=== PATIENT | female | born 1980 | race Caucasian/White ===

== ENCOUNTER 2020-05-17 13:39 | Emergency (ER) | payer BC, SELFPAY ==
[2020-05-17 14:01] VITALS: BP 132/91; PULSE 88; RESP 14; TEMP 36.6; O2SAT 98; BMI 23.5
--- NOTE | 2020-05-17 16:05 | W.ED.SKABFB ---
HPI - Skin/Abscess/Foreign Bdy General: Chief complaint: Skin/Abscess/Foreign Body Stated complaint: sore under right armpit Time Seen by Provider: 05/17/20 14:24 Source: patient Mode of arrival: ambulatory Limitations: no limitations History of Present Illness: HPI narrative: 39-year-old female patient presents to the emergency department with 7-day onset of possible abscess to the right underarm. She reports pain is now present with sleeping and is unable to rest comfortably. She states has history of abscesses in the past. MD complaint: abscess/boil Onset (ago): week(s) (1) Tetanus up to date: yes Location: chest (rt lower axilla - chest wall) Severity scale (1-10): 6 Quality: aching and constant Pain Consistency: constant Relieving factors: none Exacerbating factors: none Context: none Associated symptoms: Reports no associated symptoms; Deny chills, fever(s), nausea or vomiting Treatments prior to arrival: none Review of Systems General: Reports: 10 or more systems reviewed and unremarkable except in HPI and below Const: Denies: fever(s), chills or diaphoresis Eyes: Denies: blurry vision or eye redness ENMT: Denies: throat pain, dental pain or disequilibrium Card: Denies: chest pain, palpitations or irregular heart rhythm Resp: Denies: dyspnea, productive cough, non-productive cough or wheezing GI: Denies: abdominal pain, nausea or vomiting : Denies: difficulty voiding or dysuria Musc: Denies: neck pain, back pain, joint pain, joint swelling, muscle cramps or muscle weakness Skin/Breast: Reports: skin tenderness and changes in skin color; Denies: rash or pruritus Neuro: Denies: headache(s), weakness in extremities or behavioral changes Psych: Denies: anxiety or depression Morgan/Lymph: Denies: easy bruising Physical Exam Const: COMMON NORMALS: no acute distress, patient oriented x3, healthy appearing and alert GENERAL APPEARANCE: cooperative, comfortable and well hydrated HENMT: COMMON NORMALS: normocephalic, Normal external nose present and moist oral mucous membranes HEAD & SCALP: normocephalic NOSE: Normal external nose present Eye: COMMON NORMALS: Equal, round and reactive pupils present and EOMs intact bilaterally GENERAL EYE: appearance normal, both eyes and all related structures PUPIL: Yes Equal, round and reactive pupils present Neck/C-Spine: COMMON NORMALS: full ROM and no lymphadenopathy GENERAL: Yes normal visual inspection and Yes trachea midline CERVICAL SPINE: Yes cervical ROM normal Lymph: LYMPHATIC: no lymphadenopathy noted Chest: COMMONS NORMALS: normal inspection of the chest and normal palpation of entire chest wall Resp: COMMON NORMALS: normal respiratory effort, No retractions, No use of accessory muscles and clear to auscultation bilaterally EFFORT & INSPECTION: Yes able to speak in complete sentences AUSCULTATION: clear to auscultation bilaterally Cardio: COMMON NORMALS: regular rhythm, S1 normal heart sound present and S2 normal heart sound present RHYTHM: regular rhythm HEART SOUNDS: S1 normal heart sound present and S2 normal heart sound present GI: COMMON NORMALS: Soft to palpation and non-tender INSPECTION: Yes normal to inspection PALPATION: Yes Soft to palpation : COMMON NORMALS: Yes no CVA tenderness BLADDER/KIDNEY EXAM: Yes no CVA tenderness Back/Pelvis: COMMON NORMALS: no CVA tenderness and thoracic and lumbar spine normal to inspection Extremity: COMMON NORMALS: normal to inspection and capillary refill normal Neuro: COMMON NORMALS: patient oriented x3 and no focal motor deficits SENSORIUM/ORIENTATION: Yes alert Psych: COMMON NORMALS: mental status grossly normal, Normal thought process present and cooperative ACTIVITY/MOTOR BEHAVIOR: Yes appropriate eye contact THOUGHT PROCESS: Normal thought process present Skin: COMMON NORMALS: no rashes or lesions noted and turgor normal GENERAL SKIN EXAM: no rashes or lesions noted, elasticity normal and turgor normal WOUNDS: Yes wounds noted (2 cm x 2 cm indurated area with erythema, fluctuant, no surrounding erythem) without odor; no drainage and not malodorous HAIR: normal NAILS: normal Procedures Abscess I/D Site: chest (rt upper lateral) Side (if applicable): right Local Anesthetic: lidocaine 1% and with epi Amount of anesthesia used (mL): 6 Technique: incised with #11 blade and other (moderate amount of purulent drainage) Irrigation: Yes Packing used?: none Complications: other (none) Course Vital Signs: Vital signs: Vital Signs Temperature 97.9 F 05/17/20 14:01 Pulse Rate 88 05/17/20 14:01 Respiratory Rate 14 05/17/20 14:01 Blood Pressure 132/91 05/17/20 14:01 Pulse Oximetry 98 05/17/20 14:01 Discharge Plan Discharge Patient Disposition: Home Clinical Impression: Abscess Condition: Stable Prescriptions: New Bactrim DS 800-160 mg tablet 1 tab PO BID 7 Days Qty: 14 RF: 0 Discharge Orders: Discharge ED (Routine); Ordered 05/17/20 Ordered By: Kourtney Fink Discharge Diet: Usual diet Discharge Activity: Limit activity as instructed Patient Instructions: Abscess Incision and Drainage (ED) Activity Restrictions/Additional Instructions: Return to the emergency department if you develop fever, redness tracking to the axilla or increased pain Take Bactrim until all gone, even if feeling better Follow-up with your primary care physician if not improved by Wednesday, return the emergency department if worsening symptoms Drink lots of water with antibiotic Keep covered, small amount of drainage is to be expected Do not submerge in bath water, shower only until healed Coding Level of Care Code ED [employer] Exam Comprehensive
[2020-05-17] MEDS: acetaminophen 500 mg Tablet 1000 MG PO (16:20)
[2020-05-17] MEDS: sulfamethoxazole-trimeth DS 160-800 mg Tablet 1 TAB PO (16:20)
--- NOTE | 2020-05-19 12:16 | PC.NURSE ---
Lab called with MRSA in wound results. Results given to Dr. Brar. Attempted to reach pt via phone, no answer. Message left for pt to return call.
--- NOTE | 2020-05-19 12:19 | PC.NURSE ---
pt returned call and info given.
== END 2020-05-17 16:28 | disposition home or self-care (01) ==
PROVIDERS: Emergency Provider Nurse Practitioner Family
DX: L02.411 Cutaneous abscess of right axilla (principal)
CPT/HCPCS: 10060; 12345; 87070; 87075; 87077; 87186; 87205; 99281; 99283